=== PATIENT | female | born 1985 | race Caucasian/White ===

== ENCOUNTER → 2018-06-12 16:34 | Outpatient (REF) | payer SELFPAY ==
--- NOTE | 2018-06-12 16:00 | PAPFT_PTH ---
PATIENT: Jessica Easley LOC: [facility] U#:[id number] AGE/SX: 40/F ROOM: RE06/12/[address]: TROY Byrd : 1985 BED: DIS: SPEC #: [id number] RECD: 06/13/18 12:47 STATUS: FLORENCIO MOYA #: [id number] JOSE: 06/12/18 16:[address]: Alexandra Timmons DEPT: [facility] Cytology RECD BY: Sarah Rodgers Tissues: 1 - CX/ENDOCX FOR PAP SMEARS Procedures: PAP THIN PREP/[facility] Screening HPV DNA PROBE Comments: [id number]
== END ==
LOC: LBN 16:34
PROVIDERS: PCP Nurse Practitioner Family; Visit Provider Nurse Practitioner Family
DX: Z12.4 Encounter for screening for malignant neoplasm of cervix (principal); Z11.51 Encounter for screening for human papillomavirus (HPV)
CPT/HCPCS: 88142; 87624

== ENCOUNTER 2018-09-04 01:44 | Outpatient (CLI) | payer SELFPAY ==
[2018-09-04 11:06] LABS: Cholesterol 185 mg/dL (50-200); Glucose 97 mg/dL (70-100); LDL CHOLESTEROL 117 mg/dL (<100); TSH (W/Ref FT4) 1.97 uIU/mL (0.358-3.74); Triglyceride 27 mg/dL (30-150)
[2018-09-04 11:26] LABS: HDL Cholesterol 61 mg/dL (40-60)
== END 2018-09-04 02:04 ==
LOC: LOS 01:47
PROVIDERS: PCP Nurse Practitioner Family; Visit Provider Nurse Practitioner Family
DX: Z00.00 Encounter for general adult medical examination without abnormal findings (principal); Z13.1 Encounter for screening for diabetes mellitus; Z13.220 Encounter for screening for lipoid disorders; Z13.29 Encounter for screening for other suspected endocrine disorder
CPT/HCPCS: 36415; 80061; 82947; 83721; 84443

== ENCOUNTER 2019-06-03 01:37 | Outpatient (CLI) | payer OTHER, SELFPAY ==
[2019-06-03 11:27] LABS: HCT 43.2 % (36.0-46.0); HGB 14.7 g/dL (12.0-15.5); Mean Corpuscular Hemoglobin 30.1 pg (27.0-33.0); Mean Corpuscular Volume 88.3 fL (80-95); Mean Platelet Volume 9.5 fL (8.0-11.0); Platelet Count 323 x1000/uL (130-400); RBC 4.89 m/cumm (4.00-5.20); RBC Distribution Width 12.4 % (11.7-14.6); White Blood Cell Count 7.02 k/cumm (4.4-10.8)
[2019-06-03 11:38] LABS: Iron 138 ug/dL (50-175)
[2019-06-03 11:39] LABS: Hemoglobin A1C 5.3 % (4.5-6.2)
[2019-06-03 11:48] LABS: ALT 31 U/L (12-78); AST 17 U/L (15-37); Albumin 3.6 g/dL (3.4-5.0); Alkaline Phosphatase 45 U/L (46-116); Anion Gap 8.5 mmol/L (3-11); BUN 12 mg/dL (7-18); Bilirubin, Total 0.4 mg/dL (0.2-1.0); CO2 27.5 mmol/L (21.0-32.0); CREATININE 0.67 mg/dL (0.55-1.02); Calcium 8.7 mg/dL (8.5-10.1); Chloride 105 mmol/L (98-107); Ferritin 43 ng/mL (8-388); Glucose 98 mg/dL (70-100); Potassium 4.1 mmol/L (3.5-5.1); Sodium 141 mmol/L (136-145); TSH 2.28 uIU/mL (0.36-3.74); Total Protein 6.8 g/dL (6.4-8.2)
[2019-06-03 12:09] LABS: FREE T4 0.95 ng/dL (0.76-1.46)
== END 2019-06-03 01:57 ==
PROVIDERS: PCP Nurse Practitioner Family; Visit Provider Nurse Practitioner Family
DX: R53.83 Other fatigue (principal); R51 Headache; R14.0 Abdominal distension (gaseous); R42 Dizziness and giddiness
CPT/HCPCS: 36415; 80053; 85027; 82728; 83036; 83540; 84439; 84443

== ENCOUNTER 2023-11-29 14:48 | Outpatient (REF) | payer OTHER, SELFPAY ==
--- NOTE | 2023-11-29 13:30 | PAPFT_PTH ---
PATIENT: Jessica Easley LOC: [facility] U#:[id number] AGE/SX: 38/F ROOM: RE11/29/[address]: TROY Byrd : 1985 BED: DIS: 11/29/2023 SPEC #: [id number] RECD: 11/30/23 12:54 STATUS: FLORENCIO RECarlos #: [id number] JOSE: 11/29/23 13:[address]: Alexandra Timmons DEPT: [facility] Cytology RECD BY: Sarah Rodgers Tissues: 1 - CX/ENDOCX FOR PAP SMEARS Procedures: PAP THIN PREP/[facility] Screening HPV DNA PROBE Comments: [id number]
== END 2023-11-29 14:49 | disposition home or self-care (01) ==
LOC: LBN 14:48
PROVIDERS: PCP Nurse Practitioner Family; Visit Provider Nurse Practitioner Family
DX: Z12.4 Encounter for screening for malignant neoplasm of cervix (principal)
CPT/HCPCS: 88142; 87624

== ENCOUNTER 2024-02-12 03:57 | Outpatient (CLI) | payer OTHER, SELFPAY ==
[2024-02-12 13:28] LABS: ALT 32 U/L (14-59); AST 21 U/L (15-37); Albumin 3.6 g/dL (3.4-5.0); Alkaline Phosphatase 49 U/L (46-116); Anion Gap 10.9 mmol/L (3-11); BUN 9 mg/dL (7-18); Bilirubin, Total 0.2 mg/dL (0.2-1.0); CO2 27.1 mmol/L (21.0-32.0); CREATININE 0.8 mg/dL (0.55-1.02); Calcium 8.6 mg/dL (8.5-10.1); Chloride 105 mmol/L (98-107); Estimated GFR 97.26 (mL/min/1.73m2); Glucose 110 mg/dL (74-106); Potassium 4.1 mmol/L (3.5-5.1); Sodium 143 mmol/L (136-145); Total Protein 7.2 g/dL (6.4-8.2)
[2024-02-12 13:41] LABS: Calculated LDL 149 mg/dL (<100); Cholesterol 213 mg/dL (<200); HDL Cholesterol 54 mg/dL (40-60); Triglyceride 51 mg/dL (<150)
[2024-02-12 14:12] LABS: Hemoglobin A1C 5.4 % (<5.7)
== END 2024-02-12 03:58 | disposition home or self-care (01) ==
LOC: LOS 03:57
PROVIDERS: PCP Nurse Practitioner Family; Visit Provider Nurse Practitioner Family
DX: Z00.00 Encounter for general adult medical examination without abnormal findings (principal)
CPT/HCPCS: 36415; 80053; 80061; 83036

== ENCOUNTER 2024-03-10 05:01 | Outpatient (CLI) | payer OTHER, SELFPAY ==
[2024-03-10 12:21] LABS: Abs Immature Grans 0.01 10^3/uL (0.0-0.06); Absolute Basophil Count 0.06 10^3/uL (0.0-0.2); Absolute Eosinophil Count 0.14 10^3/uL (0.0-0.7); Absolute Lymphocyte Count 1.89 10^3/uL (1.2-3.4); Absolute Monocyte Count 0.44 10^3/uL (0.1-0.8); Absolute Neutrophil Count 4.19 10^3/uL (1.2-6.7); Basophils % 0.9 %; Eosinophils % 2.1 %; HCT 43.2 % (36.0-46.0); HGB 14.8 g/dL (11.2-15.7); Immature Grans % 0.1 %; Lymphocytes % 28.1 %; MCH 30.8 pg (27.0-33.0); MCHC 34.3 % (32.0-36.0); MCV 90 fL (80-95); MPV 9.4 fL (8.0-11.0); Monocytes % 6.5 %; Neutrophils % 62.3 %; Platelet Count 417 10^3/uL (130-400); RBC 4.81 10^6/uL (3.93-5.22); RDW 12.4 % (11.7-14.6); RDW-SD 41.3 fL; WBC 6.73 10^3/uL (4.4-10.8)
[2024-03-10 12:38] LABS: INR 0.9 (0.9-1.1); PTT Activated 30.1 sec (23.6-32.8); Prothrombin Time 9.4 sec (9.1-11.1)
[2024-03-10 12:40] LABS: TSH (W/Ref FT4) 1.79 uIU/mL (0.36-3.74)
[2024-03-11 09:29] LABS: Alpha 1 Antitrypsin,Serum 136 mg/dL (90-200)
== END 2024-03-10 05:02 | disposition home or self-care (01) ==
LOC: LOS 05:02
PROVIDERS: PCP Nurse Practitioner Family; Visit Provider Nurse Practitioner Family
DX: K76.0 Fatty (change of) liver, not elsewhere classified (principal); K76.89 Other specified diseases of liver; E78.5 Hyperlipidemia, unspecified; E66.8 Other obesity; F17.210 Nicotine dependence, cigarettes, uncomplicated; Z83.79 Family history of other diseases of the digestive system
CPT/HCPCS: 36415; 82103; 84443; 85025; 85610; 85730

== ENCOUNTER 2024-12-18 15:01 | Outpatient (CLI) | payer OTHER, SELFPAY ==
[2024-12-18 14:38] LABS: Abs Immature Grans 0.04 10^3/uL (0.0-0.06); Absolute Basophil Count 0.07 10^3/uL (0.0-0.2); Absolute Eosinophil Count 0.17 10^3/uL (0.0-0.7); Absolute Lymphocyte Count 2.49 10^3/uL (1.2-3.4); Absolute Monocyte Count 0.79 10^3/uL (0.1-0.8); Basophils % 0.7 %; Eosinophils % 1.6 %; HCT 41.3 % (36.0-46.0); HGB 13.9 g/dL (11.2-15.7); Immature Grans % 0.4 %; Lymphocytes % 23.1 %; MCH 30.2 pg (27.0-33.0); MCHC 33.7 % (32.0-36.0); MCV 90 fL (80-95); MPV 8.7 fL (8.0-11.0); Monocytes % 7.3 %; Neutrophils % 66.9 %; Platelet Count 322 10^3/uL (130-400); RBC 4.61 10^6/uL (3.93-5.22); RDW 11.9 % (11.7-14.6); WBC 10.76 10^3/uL (4.4-10.8)
[2024-12-18 15:57] LABS: ALT 36 U/L (14-59); AST 21 U/L (15-37); Albumin 3.6 g/dL (3.4-5.0); Alkaline Phosphatase 52 U/L (46-116); Anion Gap 8.2 mmol/L (3-11); BUN 10 mg/dL (7-18); Bilirubin, Total 0.29 mg/dL (0.2-1.0); CO2 29.8 mmol/L (21.0-32.0); CREATININE 0.7 mg/dL (0.55-1.02); Calcium 8.8 mg/dL (8.5-10.1); Chloride 103 mmol/L (98-107); Estimated GFR 113.46 (mL/min/1.73m2); Glucose 91 mg/dL (74-106); Potassium 3.9 mmol/L (3.5-5.1); Sodium 141 mmol/L (136-145); TSH (W/Ref FT4) 1.56 uIU/mL (0.36-3.74)
[2024-12-19 10:06] LABS: Hepatitis C Ab w Rflx HCV PCR Negative (Negative)
[2024-12-19 10:11] LABS: HBs Antibody, Quant 5.8 mIU/mL (See Note); Hep B Surface Ab Negative (See Note); Hepatitis B Core Antibody Negative (Negative); Hepatitis B Surface Antigen Negative (Negative)
[2024-12-19 10:17] LABS: HIV-1/2 Ag & Ab Screen Negative (Negative)
== END 2024-12-18 15:02 | disposition home or self-care (01) ==
LOC: LBO 15:01
PROVIDERS: PCP Nurse Practitioner Family; Visit Provider Nurse Practitioner Family
DX: N93.9 Abnormal uterine and vaginal bleeding, unspecified (principal); Z11.59 Encounter for screening for other viral diseases; Z11.4 Encounter for screening for human immunodeficiency virus [HIV]
CPT/HCPCS: 36415; 80053; 86704; 86706; 86803; 87340; 87389; 84443; 85025

== ENCOUNTER 2025-02-18 15:55 | Outpatient (REF) | payer OTHER, SELFPAY ==
--- NOTE | 2025-02-18 15:20 | ENDOMET_PTH ---
PATIENT: Jessica Easley LOC: [facility] U#:[id number] AGE/SX: 39/F ROOM: RE02/18/[address]: Svetlana Kuhn DO : 1985 BED: DIS: 02/18/2025 SPEC #: [id number] RECD: 02/18/25 17:33 STATUS: FLORENCIO REQ #: [id number] JOSE: 02/18/25 15:[address]: Svetlana Kuhn DEPT: Surgical Specimen RECD BY: Sarah Rodgers ENTERED: 02/18/25 17:34 SP TYPE: Endomet OTHR DR: TROY Byrd Tissues: 1 - ENDOMETRIUM BX/DEVORA Procedures: GROSS AND MICRO LEVEL 4 Comments: [id number]
== END 2025-02-18 15:56 | disposition home or self-care (01) ==
LOC: LBN 15:55
PROVIDERS: PCP Nurse Practitioner Family; Visit Provider Obstetrics & Gynecology
DX: N85.8 Other specified noninflammatory disorders of uterus (principal)
CPT/HCPCS: 88305

== ENCOUNTER 2025-03-03 15:52 | Outpatient (REF) | payer OTHER, SELFPAY ==
[2025-03-05 11:18] LABS: Chlamydia Result Negative (Negative); GC Result Negative (Negative)
== END 2025-03-03 15:53 | disposition home or self-care (01) ==
LOC: LBN 15:52
PROVIDERS: PCP Nurse Practitioner Family; Visit Provider Obstetrics & Gynecology
DX: N93.8 Other specified abnormal uterine and vaginal bleeding (principal)
CPT/HCPCS: 87491; 87591